=== PATIENT | female | born 1980 | race Caucasian/White ===

== ENCOUNTER → 2016-11-01 | Outpatient (CLI) | payer OTHER ==
--- NOTE | 2016-11-02 11:51 | NM ---
Nuclear Medicine Thyroid Uptake and Scan Clinical History: 36-year-old who is hyperthyroid, with abnormal lab results one year ago. She has be en on therapy, but discontinued it several months ago. The patient has some tenderness with swallowin g, an increased heart rate, and diminished sleep. ICD-10 Diagnostic Code: E05.90. Radiopharmaceutical: 249 uCi of oral I-123 (in one capsule). Comparison Study: None. Technique: After the oral consumption of the radiopharmaceutical, pinhole-collimated imaging of the t hyroid bed was obtained. 6 and 24-hour uptake values were calculated. Findings: Thyroid Scan: There is homogeneous uptake noted throughout the gland, with no definite discrete hot o r cold nodule. The right lobe measures 5.5 x 2.9 cm (for a volume of 29 mL), and the left lobe measur es 6.6 x 2.8 cm (for a volume of 27 mL). As a point of reference, a normal adult's thyroid volume is 10 to 15 mL. Relative uptake is 51% to the right lobe and 49% to the left lobe. Thyroid Uptake: The 6-hour uptake is 23.7% (normal range is 6 to 12%), and the 24-hour uptake is 46.2 % (normal range is 10 to 35%). Impression: 1. Mild diffuse thyromegaly. 2. Elevated 6 and 24-hour thyroid uptake values.
== END ==
LOC: FIMAGING 09:31
PROVIDERS: ATTEND Physician Assistant
DX: E05.90 Thyrotoxicosis, unspecified without thyrotoxic crisis or storm (principal)
CPT/HCPCS: A9516